=== PATIENT | female | born 1985 | race Caucasian/White ===

== ENCOUNTER 2017-05-19 08:15 | Emergency (ER) | payer OTHER ==
[~2017-05-19] VITALS: Ht 167.6 cm; Wt 83.0 kg
[2017-05-19 08:19] VITALS: Ht 167.6 cm; Wt 83.0 kg
[2017-05-19 09:25] VITALS: BP 130/81
== END 2017-05-19 09:25 | disposition home or self-care (01) ==
LOC: ED 08:15
DX: H10.13 Acute atopic conjunctivitis, bilateral (principal); G43.909 Migraine, unspecified, not intractable, without status migrainosus

== ENCOUNTER 2018-06-19 12:14 | Emergency (ER) | payer OTHER ==
[~2018-06-19] VITALS: Ht 167.6 cm; Wt 88.9 kg
[2018-06-19 12:42] VITALS: Ht 167.6 cm; Wt 88.9 kg
[2018-06-19 17:28] VITALS: BP 131/85
== END 2018-06-19 17:28 | disposition home or self-care (01) ==
LOC: ED 12:14
DX: J02.9 Acute pharyngitis, unspecified (principal); G43.909 Migraine, unspecified, not intractable, without status migrainosus
CPT/HCPCS: J1100

== ENCOUNTER 2018-12-03 13:31 | Emergency (ER) | payer OTHER ==
[~2018-12-03] VITALS: Ht 167.6 cm; Wt 86.6 kg
[2018-12-03 13:41] VITALS: BP 125/77; Ht 167.6 cm; Wt 86.6 kg
== END 2018-12-03 15:37 | disposition home or self-care (01) ==
LOC: ED 13:31
DX: J11.1 Influenza due to unidentified influenza virus with other respiratory manifestations (principal); G43.909 Migraine, unspecified, not intractable, without status migrainosus
CPT/HCPCS: J1885